=== PATIENT | male | born 1985 | race Hispanic/Latino ===

== ENCOUNTER 2018-11-20 11:52 | Emergency (ER) | payer OTHER | END 2018-11-20 12:52 | disposition home or self-care (01) | LOC: EDH 11:52 | DX: S80.02XA Contusion of left knee, initial encounter (principal); M54.5 Low back pain; V47.5XXA Car driver injured in collision with fixed or stationary object in traffic accident, initial encounter; Y93.89 Activity, other specified; Y92.89 Other specified places as the place of occurrence of the external cause; Y99.8 Other external cause status ==